=== PATIENT | male | born 1950 | race American Indian/Alaskan Native ===

== ENCOUNTER 2017-08-30 07:25 | Emergency (ER) | payer MEDICARE ==
[2017-08-30] MEDS ORDERED: MOTRIN PO ONE (10:13)
--- NOTE | 2017-08-30 10:13 | Emergency Department Report ---
ED Fall HPI - General Chief Complaint: Fall Stated Complaint: FALL Time Seen by Provider: 08/30/17 10:12 Source: patient Mode of arrival: Ambulatory Limitations: No Limitations - History of Present Illness Initial Comments: Patient reported that he slipped and fell yesterday while getting out of his truck. He said he is having in headache and soreness all over to include his upper back on both sides, upper neck on both sides and complaining of headache to the back of his head. Pain is 9 out of 10 comes and goes. Feels achy. No medication taken. Patient denies any alcohol use or intoxication. MD Complaint: fall, other (generalized ache to include bilateral upper back and headache.) Onset/Timin -: days(s) Fall From: other (siiting in truck and fell ot) When Fall Occurred: # days [employer] (1) Fall Witnessed: yes, by family Place Fall Occurred: street Loss of Consciousness: none Prolonged Down Time?: no Symptoms Prior to Fall: none Location: head, neck, back Severity: severe Severity scale (0 -10): 9 Quality: aching Context: tripped/slipped (Priyanka in shock and accidentally tripped and fell out of truck report that he hit his head,.) Associated Symptoms: headache, neck pain, other (upper back pain). denies: numbness, weakness, chest paint, shortness of breath, abdominal pain, hematuria , unable to walk, lightheaded, vertigo, confusion - Related Data Allergies Allergy/AdvReac Type Severity Reaction Status Date / Time No Known Allergies Allergy Unverified 08/30/17 07:29 ED Review of Systems ROS: Stated complaint: FALL Other details as noted in HPI Comment: All other systems reviewed and negative Constitutional: no symptoms reported Eyes: denies: eye pain, eye discharge Respiratory: no symptoms reported Cardiovascular: denies: chest pain, palpitations, dyspnea on exertion, edema, syncope, paroxysmal nocturnal dyspnea Gastrointestinal: denies: abdominal pain, nausea, vomiting, diarrhea, constipation Genitourinary: denies: dysuria, hematuria Musculoskeletal: back pain, arthralgia, myalgia. denies: joint swelling Skin: denies: rash Neurological: headache. denies: weakness, numbness, paresthesias, confusion, abnormal gait, vertigo ED Past Medical Hx - Past Medical History Previous Medical History?: Yes Hx Hypertension: Yes (no meds. states he is off all meds) - Surgical History Past Surgical History?: Yes Additional Surgical History: Brain surgery due to a blood clot - Family History Family history: hypertension - Social History Smoking Status: Never Smoker Substance Use Type: Alcohol, Non Opiate Pain ED Physical Exam - General Limitations: No Limitations General appearance: alert, in no apparent distress - Head Head exam: Present: atraumatic, normocephalic, normal inspection - Expanded Head Exam Expanded Head exam: Absent: laceration, abrasion, contusion, hematoma, racoon eyes, sherwood's sign, general tenderness, tenderness of temporal artery, CSF rhinorrhea , CSF otorrhea - Eye Eye exam: Present: normal appearance, PERRL, EOMI. Absent: nystagmus, periorbital swelling, periorbital tenderness Pupils: Present: normal accommodation - ENT ENT exam: Present: normal exam, normal orophraynx, mucous membranes moist - Neck Neck exam: Present: normal inspection, full ROM, other (no C-spine tenderness). Absent: tenderness, meningismus, lymphadenopathy, thyromegaly - Expanded Neck Exam Expanded Neck exam: Absent: tenderness, midline deformity, anterior neck swelling, thyroid mass, carotid bruit, tracheal deviation - Respiratory Respiratory exam: Present: normal lung sounds bilaterally. Absent: respiratory distress, chest wall tenderness, accessory muscle use - Cardiovascular Cardiovascular Exam: Present: regular rate, normal rhythm, normal heart sounds. Absent: systolic murmur, diastolic murmur - GI/Abdominal GI/Abdominal exam: Present: soft, normal bowel sounds. Absent: distended, tenderness, guarding, rebound, rigid, organomegaly, mass, bruit, pulsatile mass , hernia - Extremities Exam Extremities exam: Present: normal inspection, full ROM, normal capillary refill , other (no clubbing, cyanosis or edema. +2 pulses all extremities and no neurovascular compromise). Absent: tenderness, pedal edema, joint swelling, calf tenderness - Back Exam Back exam: Present: normal inspection, full ROM, other (ambulates without any difficulties). Absent: tenderness, CVA tenderness (R), CVA tenderness (L), muscle spasm, paraspinal tenderness, vertebral tenderness, rash noted - Neurological Exam Neurological exam: Present: alert, oriented X3, normal gait, reflexes normal. Absent: motor sensory deficit - Expanded Neurological Exam Expanded Neurological exam: Absent: innattentive, memory loss-remote event, memory loss- recent event, ataxia, receptive aphasia, expressive aphasia, total aphasia, tremor, protecting the airway Patient oriented to: Present: person, place, time Speech: Present: fluid speech Cranial nerves: EOM's Intact: Normal, Gag Reflex: Normal, Tongue Deviation: Normal, Nystagmus: Normal, Facial Sensation: Normal Cerebellar function: Romberg: Normal Upper motor neuron: Pronator Drift: Normal, Sensory Extinction: Normal Sensory exam: Upper Extremity Light Touch: Normal, Upper Extremity Pin Prick: Normal, Upper Extremity Temperature: Normal, UE 2 Point Discrimination: Normal, Lower Extremity Light Touch: Normal, Lower Extremity Pin Prick: Normal, Lower Extremity Temperature: Normal, LE 2 Point Discrimination: Normal Motor strength exam: RUE: 5, LUE: 5, RLE: 5, LLE: 5 DTR: bicep (R): 2+, bicep (L): 2+, tricep (R): 2+, tricep (L): 2+, knee (R): 2+ , knee (L): 2+, ankle (R): 2+, ankle (L): 2+ Best Eye Response (Ivonne): (4) open spontaneously Best Motor Response (Ivonne): (6) obeys commands Best Verbal Response (Ivonne): (5) oriented [place] Total: 15 - Psychiatric Psychiatric exam: Present: normal affect, normal mood - Skin Skin exam: Present: warm, dry, intact, normal color. Absent: rash ED Course Vital Signs 08/30/17 08/30/17 08/30/17 07:29 10:24 10:51 Temperature 97.6 F Pulse Rate 91 H Respiratory 20 18 18 Rate Blood Pressure 163/78 O2 Sat by Pulse 99 98 Oximetry 08/30/17 10:54 Temperature Pulse Rate 65 Respiratory Rate Blood Pressure 137/66 O2 Sat by Pulse 100 Oximetry - Reevaluation(s) Reevaluation #1: 08/30/17 12:21 Patient given Motrin for pain. Upon reading patient history a noted that he had brain surgery in the positive for blood clot. I went to discuss with patient that I think he'll need to have a CT scan based on his history and he was not in room. I call patient and he said he left because he was tired of waiting. I discussed with him that he needs a CT scan and anal need to return to the hospital. Patient agrees to come back. Reevaluation #2: 08/30/17 12:42 Patient is currently back in room. CT scan of the brain and head without contrast ordered. No change in neurological status from previous exam. Reevaluation #3: 08/30/17 13:[address] scan of the head and brain without contrast shows ventricles are normal in size and midline in location. No evidence of acute ischemic, hemorrhage or mass. Very small area of bright urine is identified at the right parietal region adjacent to the inner table. This here also revealed changes for craniotomy find in with possibility of early subdural, if present, cannot be excluded. Radiologist is recommended MRI to rule out subdural bleed due to recent trauma. Patient was informed and he agreed 08/30/17 13:56 Reevaluation #4: 08/30/17 14:42 Patient has been accepted by Dr. Darnell was trauma at [place]. He will be transferred via ambulance . EMS is currently here to transport patient. Lab work noted and in paperwork to transfer to [place]. CD in paperwork to transfer to [place]. Patient remained stable without change in neuro status. ED Medical Decision Making - Lab Data Result diagrams: 08/30/17 14:01 08/30/17 14:01 Lab Results 08/30/17 08/30/17 08/30/17 Range/Units 14:01 14:01 14:01 WBC 5.9 (4.5-11.0) K/mm3 RBC 4.56 (3.65-5.03) M/mm3 Hgb 9.7 L (11.8-15.2) gm/dl Hct 29.8 L (35.5-45.6) % MCV 65 L (84-94) fl MCH 21 L (28-32) pg MCHC 33 (32-34) % RDW 29.1 H (13.2-15.2) % Plt Count 212 (140-440) K/mm3 Baso % (Auto) Commercial Electrician PT 14.4 (12.2-14.9) Sec. INR 1.06 (0.87-1.13) APTT 32.9 (24.2-36.6) Sec. Sodium 136 L (137-145) mmol/L Potassium 4.0 (3.6-5.0) mmol/L Chloride 98.1 (98-107) mmol/L Carbon Dioxide 24 (22-30) mmol/L Anion Gap 18 mmol/L BUN 11 (9-20) mg/dL Creatinine 0.5 L (0.8-1.5) mg/dL Estimated GFR > 60 ml/min BUN/Creatinine Ratio 22 % Glucose 93 (75-100) mg/dL Calcium 8.8 (8.4-10.2) mg/dL Total Bilirubin 1.80 H (0.1-1.2) mg/dL Direct Bilirubin 0.4 H (0-0.2) mg/dL Indirect Bilirubin 1.4 mg/dL AST 24 (5-40) units/L ALT 10 (7-56) units/L Alkaline Phosphatase 52 (35-129) units/L Total Protein 7.4 (6.3-8.2) g/dL Albumin 4.2 (3.9-5) g/dL Albumin/Globulin Ratio 1.3 % - Radiology Data Radiology results: report reviewed CT scan of the head without contrast revealed ventricles are normal in size and midline in location. No evidence of acute ischemia, hemorrhage or mass. Very small area of bright dura is identified in the right parietal region adjacent to the inner table. This area also reveals bony changes from craniotomy. Patient had craniotomy in the past for blood clot. Radiologist also suggest that is a possibility of early subdural, if present, cannot be excluded. In view of history of recent trauma MRI scan is recommended for further evaluation. Patient does have headache and he said this headache is after he fall and hit his head. - Medical Decision Making ED course: Patient here report that he fell yesterday with headache to the back of his head and upper back pain and bilateral neck pain. Neurological status intact but the CT scan showed that he probably has early subdural bleed. CBC shows anemia and BMP shows patient with abnormal bilirubin. PT/INR and PTT is stable. Patient said he does not have any anemia. I discussed lab work, CT scan and recommendation to have MRI due to possibility of bleed versus old evacuation of clots via craniotomy per radiologist. Patient was accepted by [place] trauma team Dr. Darnell. I spoke with attending physician in emergency room and he wanted patient to be transfer. This was explained to patient in detail and he agrees. Patient neurological status intact and remained intact during ED stay. Pt had left for while to go home without telling anyone and had to call him on his personal cell phone to come back because I told him that he needed a CT scan of his head. Denies that he left because he wanted to go home and sleep. Patient transfer to [facility] via EMS in stable condition. Critical care attestation.: If time is entered above; I have spent that time in minutes in the direct care of this critically ill patient, excluding procedure time. ED Disposition Clinical Impression: Abnormal CT of brain, Acute upper back pain Headache, post-traumatic, acute Qualifiers: Intractability: not intractable Qualified Code(s): G44.319 - Acute post- traumatic headache, not intractable Neck muscle strain Qualifiers: Encounter type: initial encounter Qualified Code(s): S16.1XXA - Strain of muscle, fascia and tendon at neck level, initial encounter Closed head injury without concussion Qualifiers: Encounter type: initial encounter Qualified Code(s): S09.90XA - Unspecified injury of head, initial encounter Disposition: DC/TX-70 ANOTHER TYPE HLTHCARE Is pt being admited?: No Does the pt Need Aspirin: No Condition: Stable Referrals: PRIMARY CARE, [Primary Care Provider] - 3-5 Days
[2017-08-30 11:01] VITALS: BP 137/66
--- NOTE | 2017-08-30 13:12 | Cat Scan Report ---
CT scan of head without IV contrast: History: Status post fall. History of brain surgery and blocked. Findings: Ventricles are normal in size and midline in location. No evidence of acute ischemic, hemorrhage or mass. Very small area of bright dura is identified at the right parietal region adjacent to the inner table. This area also reveals bony changes from craniotomy. Normal brainstem and cerebellum. Impression: Findings as detailed above is probably related to previous surgery however possibility of early subdural, if present, cannot be excluded. In view of history of recent trauma MRI scan is a recommended for further evaluation.
[2017-08-30 14:27] LABS: Hematocrit 29.8 % (35.5-45.6); Hemoglobin 9.7 gm/dl (11.8-15.2); Mean Corpuscular HGB Conc 33 % (32-34); Mean Corpuscular Hemoglobin 21 pg (28-32); Mean Corpuscular Volume 65 fl (84-94); Platelet Count 212 K/mm3 (140-440); Red Blood Count 4.56 M/mm3 (3.65-5.03); Red Cell Distribution Width 29.1 % (13.2-15.2)
[2017-08-30 14:35] LABS: INR 1.06 (0.87-1.13); Partial Thromboplastin Time 32.9 Sec. (24.2-36.6)
[2017-08-30 14:39] LABS: Alanine Aminotransferase 10 units/L (7-56); Albumin 4.2 g/dL (3.9-5); BUN/Creatinine Ratio 22; Bilirubin,Direct 0.4 mg/dL (0-0.2); Blood Urea Nitrogen 11 mg/dL (9-20); Calcium 8.8 mg/dL (8.4-10.2); Hemolysis Index 6
[2017-08-30 14:53] LABS: Anisocytosis 2+; Eosinophils % (Manual) 0 % (0.0-4.3); Helmet Cells 1+; Hypochromasia 2+; Ovalocytes 1+; Poikilocytosis 3+; Target Cells 1+; Tear Drop Cells 1+; Total Cells Counted 100
[2017-08-30 14:54] LABS: Acanthocytes 1+; Giant Platelets Rare; Schistocytes Few
== END 2017-08-30 14:50 | disposition other institution (70) ==
LOC: ED 07:25
DX: S16.1XXA Strain of muscle, fascia and tendon at neck level, initial encounter (principal); G44.319 Acute post-traumatic headache, not intractable; S09.90XA Unspecified injury of head, initial encounter; M54.9 Dorsalgia, unspecified; R90.89 Other abnormal findings on diagnostic imaging of central nervous system; I10 Essential (primary) hypertension; V98.8XXA Other specified transport accidents, initial encounter; Y93.89 Activity, other specified; Y99.8 Other external cause status; Y92.410 Unspecified street and highway as the place of occurrence of the external cause
CPT/HCPCS: 36415; 70450; 80048; 80074; 85007; 85025; 85610; 85730

== ENCOUNTER 2018-09-16 20:09 | Emergency (ER) | payer MEDICARE ==
[2018-09-16 20:17] VITALS: BP 156/95
--- NOTE | 2018-09-16 20:24 | Emergency Department Report ---
Blank Doc - Documentation Documentation: This is a 67-year-old male that presents with epigastric abdominal pain. Denies any n/v. This initial assessment/diagnostic orders/clinical plan/treatment(s) is/are subject to change based on patient's health status, clinical progression and re- assessment by fellow clinical providers in the ED. Further treatment and workup at subsequent clinical providers discretion. Patient/guardians urged not to elope from the ED as their condition may be serious if not clinically assessed and managed. Initial orders include: 1- Patient sent to [facility] for further evaluation and treatment 2- labs 3- UA
[2018-09-16 21:16] LABS: Hematocrit 30.7 % (35.5-45.6); Hemoglobin 10.2 gm/dl (11.8-15.2); Mean Corpuscular HGB Conc 33 % (32-34); Mean Corpuscular Volume 68 fl (84-94); Platelet Count 319 K/mm3 (140-440); Red Blood Count 4.54 M/mm3 (3.65-5.03); Red Cell Distribution Width 29.2 % (13.2-15.2)
[2018-09-16 21:19] LABS: Alanine Aminotransferase 8 units/L (7-56); Albumin 4.3 g/dL (3.9-5); BUN/Creatinine Ratio 13; Bilirubin,Direct 0.3 mg/dL (0-0.2); Blood Urea Nitrogen 9 mg/dL (9-20); Calcium 9.3 mg/dL (8.4-10.2); Hemolysis Index 5
[2018-09-16 21:49] LABS: Basophils % (Manual) 0 % (0.0-1.8); RBC Morphology Normal; Total Cells Counted 100
--- NOTE | 2018-09-16 21:55 | XRay Report ---
PROCEDURE: XR ABD SERIES W CXR 1V TECHNIQUE: Abdominal series complete, including supine and upright AP views of the abdomen and front al chest. HISTORY: abd pain COMPARISONS: None . FINDINGS: Heart: Normal. Mediastinum/Vessels: Normal. Lungs/Pleural space: Normal. Bowel gas pattern: Nonobstructive . Masses or calcifications: None . Bony structures: No acute osseous abnormality . Other: No free intraperitoneal air . IMPRESSION: No acute abnormality. This document is electronically signed by Raffy Britt MD., September 16 2018 09:52:59 PM ET
[2018-09-17] MEDS ORDERED: ALUM-MAG HYDROX-SIMETH 200-200-20MG/5ML PO ONE (00:37)
[2018-09-17] MEDS ORDERED: LIDOCAINE VISCOUS 2% PO ONE (00:37)
--- NOTE | 2018-09-17 00:45 | Emergency Department Report ---
ED Abdominal Pain HPI - General Chief Complaint: Abdominal Pain Stated Complaint: ABD PAIN Time Seen by Provider: 09/16/18 20:23 Source: patient Mode of arrival: Ambulatory Limitations: No Limitations - History of Present Illness Initial Comments: Patient is a 59-year-old -Swedish male history of hypertension history of recurrent constipation presents for left flank and epigastric pain pressure . He states that he decreased bowel movements states bowel movements have decreased from once a day to every other day now small amounts firm there's no bleeding no bloody stools there is no chest pain or shortness of breath no back pain no dizziness or lightheadedness MD Complaint: abdominal pain Onset/Timin -: week(s) Location: epigastric Radiation: LLQ Migration to: LLQ Severity scale (0 -10): 8 Quality: cramping Consistency: intermittent Improves With: other (belching bowel movement ) Worsens With: movement Associated Symptoms: constipation - Related Data Home Medications Medication Instructions Recorded Confirmed Last Taken Apixaban [Eliquis] 5 mg PO DAILY 03/05/18 03/05/18 03/04/18 05:30 Metoprolol [Lopressor TAB] 25 mg PO DAILY 03/05/18 03/05/18 03/04/18 hydroCHLOROthiazide [HCTZ] 25 mg PO QDAY 03/05/18 03/05/18 03/04/18 Previous Rx's Medication Instructions Recorded Last Taken Type Bisacodyl [Dulcolax suppos] 10 mg MS QDAY PRN #6 supp.rect 09/17/18 Unknown Rx Polyethylene Glycol 3350 [Miralax 17 gm PO BID PRN 7 Days #14 packet 09/17/18 Un known Rx 3350] Allergies Allergy/AdvReac Type Severity Reaction Status Date / Time No Known Allergies Allergy Unverified 08/30/17 07:29 ED Review of Systems ROS: Stated complaint: ABD PAIN Other details as noted in HPI Constitutional: denies: chills, fever Eyes: denies: eye pain, eye discharge, vision change ENT: denies: ear pain, throat pain Respiratory: denies: cough, shortness of breath, wheezing Cardiovascular: denies: chest pain, palpitations Endocrine: no symptoms reported Gastrointestinal: abdominal pain, constipation. denies: nausea, diarrhea Genitourinary: denies: urgency, dysuria Musculoskeletal: denies: back pain, joint swelling, arthralgia Skin: denies: rash, lesions Neurological: denies: headache, weakness, paresthesias Psychiatric: denies: anxiety, depression Hematological/Lymphatic: denies: easy bleeding, easy bruising ED Past Medical Hx - Past Medical History Previous Medical History?: Yes Hx Hypertension: Yes Hx Asthma: No Hx HIV: No - Surgical History Past Surgical History?: Yes Additional Surgical History: Brain surgery due to a blood clot - Social History Smoking Status: Never Smoker Substance Use Type: None - Medications Home Medications: Home Medications Medication Instructions Recorded Confirmed Last Taken Type Apixaban [Eliquis] 5 mg PO DAILY 03/05/18 03/05/18 03/04/18 05:30 History Metoprolol [Lopressor TAB] 25 mg PO DAILY 03/05/18 03/05/18 03/04/18 History hydroCHLOROthiazide [HCTZ] 25 mg PO QDAY 03/05/18 03/05/18 03/04/18 History Bisacodyl [Dulcolax suppos] 10 mg MS QDAY PRN #6 supp.rect 09/17/18 Unknown Rx Polyethylene Glycol 3350 [Miralax 17 gm PO BID PRN 7 Days #14 packet 09/17/18 Unknown Rx 3350] ED Physical Exam - General Limitations: No Limitations General appearance: alert, in no apparent distress - Head Head exam: Present: atraumatic, normocephalic - Eye Eye exam: Present: normal appearance - ENT ENT exam: Present: mucous membranes moist - Neck Neck exam: Present: normal inspection - Respiratory Respiratory exam: Present: normal lung sounds bilaterally. Absent: respiratory distress, wheezes, stridor, chest wall tenderness - Cardiovascular Cardiovascular Exam: Present: regular rate, normal rhythm, normal heart sounds. Absent: systolic murmur, diastolic murmur, rubs, gallop - GI/Abdominal GI/Abdominal exam: Present: soft, normal bowel sounds - Rectal Rectal exam: Present: deferred - Extremities Exam Extremities exam: Present: normal inspection - Back Exam Back exam: Present: normal inspection, full ROM. Absent: tenderness, CVA tenderness (R), CVA tenderness (L), muscle spasm, rash noted - Neurological Exam Neurological exam: Present: alert, oriented X3 - Psychiatric Psychiatric exam: Present: normal affect, normal mood - Skin Skin exam: Present: warm, dry, intact, normal color. Absent: rash ED Course Vital Signs 09/16/18 09/16/18 20:14 20:23 Temperature 97.5 F L 97.5 F L Pulse Rate 78 78 Respiratory 16 16 Rate Blood Pressure 156/95 156/95 O2 Sat by Pulse 100 100 Oximetry ED Medical Decision Making - Lab Data Result diagrams: 09/16/18 20:30 09/16/18 20:30 Lab Results 09/16/18 09/16/18 Range/Units 20:30 20:30 WBC 5.3 (4.5-11.0) K/mm3 RBC 4.54 (3.65-5.03) M/mm3 Hgb 10.2 L (11.8-15.2) gm/dl Hct 30.7 L (35.5-45.6) % MCV 68 L (84-94) fl MCH 23 L (28-32) pg MCHC 33 (32-34) % RDW 29.2 H (13.2-15.2) % Plt Count 319 (140-440) K/mm3 Lymph % (Auto) Sales Review Clerk Add Manual Diff Complete Total Counted 100 Seg Neutrophils % Sales Review Clerk Seg Neuts % (Manual) 42.0 (40.0-70.0) % Band Neutrophils % 0 % Lymphocytes % (Manual) 51.0 H (13.4-35.0) % Reactive Lymphs % (Man) 0 % Monocytes % (Manual) 4.0 (0.0-7.3) % Eosinophils % (Manual) 3.0 (0.0-4.3) % Basophils % (Manual) 0 (0.0-1.8) % Metamyelocytes % 0 % Myelocytes % 0 % Promyelocytes % 0 % Blast Cells % 0 % Nucleated RBC % Not Reportable Seg Neutrophils # Man 2.2 (1.8-7.7) K/mm3 Band Neutrophils # 0.0 K/mm3 Lymphocytes # (Manual) 2.7 (1.2-5.4) K/mm3 Abs React Lymphs (Man) 0.0 K/mm3 Monocytes # (Manual) 0.2 (0.0-0.8) K/mm3 Eosinophils # (Manual) 0.2 (0.0-0.4) K/mm3 Basophils # (Manual) 0.0 (0.0-0.1) K/mm3 Metamyelocytes # 0.0 K/mm3 Myelocytes # 0.0 K/mm3 Promyelocytes # 0.0 K/mm3 Blast Cells # 0.0 K/mm3 WBC Morphology Not Reportable Hypersegmented Neuts Not Reportable Hyposegmented Neuts Not Reportable Hypogranular Neuts Not Reportable Smudge Cells Not Reportable Toxic Granulation Not Reportable Toxic Vacuolation Not Reportable Dohle Bodies Not Reportable Pelger-Huet Anomaly Not Reportable Keyla Rods Not Reportable Platelet Estimate Not Reportable Clumped Platelets Not Reportable Plt Clumps, EDTA Not Reportable Large Platelets Not Reportable Giant Platelets Not Reportable Platelet Satelliting Not Reportable Plt Morphology Comment Not Reportable RBC Morphology Normal Dimorphic RBCs Not Reportable Polychromasia Not Reportable Hypochromasia Not Reportable Poikilocytosis Not Reportable Anisocytosis Not Reportable Microcytosis Not Reportable Macrocytosis Not Reportable Spherocytes Not Reportable Pappenheimer Bodies Not Reportable Sickle Cells Not Reportable Target Cells Not Reportable Tear Drop Cells Not Reportable Ovalocytes Not Reportable Helmet Cells Not Reportable Polo-Sacred Heart Bodies Not Reportable [place] Rings Not Reportable [place] Cells Not Reportable Bite Cells Not Reportable Crenated Cell Not Reportable Elliptocytes Not Reportable Acanthocytes (Spur) Not Reportable Rouleaux Not Reportable Hemoglobin C Crystals Not Reportable Schistocytes Not Reportable Malaria parasites Not Reportable Boaz Bodies Not Reportable Hem Pathologist Commnt No Sodium 139 (137-145) mmol/L Potassium 4.4 (3.6-5.0) mmol/L Chloride 100.8 (98-107) mmol/L Carbon Dioxide 28 (22-30) mmol/L Anion Gap 15 mmol/L BUN 9 (9-20) mg/dL Creatinine 0.7 L (0.8-1.5) mg/dL Estimated GFR > 60 ml/min BUN/Creatinine Ratio 13 % Glucose 101 H (75-100) mg/dL Calcium 9.3 (8.4-10.2) mg/dL Total Bilirubin 1.80 H (0.1-1.2) mg/dL Direct Bilirubin 0.3 H (0-0.2) mg/dL Indirect Bilirubin 1.5 mg/dL AST 18 (5-40) units/L ALT 8 (7-56) units/L Alkaline Phosphatase 50 (35-129) units/L Total Protein 7.5 (6.3-8.2) g/dL Albumin 4.3 (3.9-5) g/dL Albumin/Globulin Ratio 1.3 % Lipase 39 (13-60) units/L - Radiology Data Radiology results: report reviewed, image reviewed Ordering Physician: SLADE GIRON NP Date of Service: 09/16/18 Procedure(s): XR abd series w cxr 1V Accession Number(s): [id number] cc: SLADE GIRON NP Fluoro Time In Minutes: PROCEDURE: XR ABD SERIES W CXR 1V TECHNIQUE: Abdominal series complete, including supine and upright AP views of the abdomen and frontal chest. HISTORY: abd pain COMPARISONS: None . FINDINGS: Heart: Normal. Mediastinum/Vessels: Normal. Lungs/Pleural space: Normal. Bowel gas pattern: Nonobstructive . Masses or calcifications: None . Bony structures: No acute osseous abnormality . Other: No free intraperitoneal air . IMPRESSION: No acute abnormality. This document is electronically signed by Raffy Krishna MD., September 16 2018 09:52:59 PM ET Transcribed By: CO Dictated By: RAFFY KRISHNA MD Electronically Authenticated By: RAFFY KRISHNA MD Signed Date/Time: 09/16/182154 DD/ 53 TD/TT: 09/16/182053 - Medical Decision Making This is likely mild constipation patient is tolerating by mouth intake is having bowel movements however small amounts scant hard firm pellets chest x-rays. No infiltration opacities abdominal x-ray nonobstructive bowel pattern moderate stool throughout colon there is no chest pain or shortness of breath no nausea vomiting no dizziness patient has PCP follow-up in 2 days patient will keep PCP follow-up patient given GI cocktail in the ED which relieved symptoms plan: MiraLAX twice a day when necessary constipation, follow up PCP on Thursday 2 days from now as scheduled and return to emergency department should symptoms worsen patient verbalized agreement and understanding of discharge plan patient DC'd to home in stable condition at this time Critical care attestation.: If time is entered above; I have spent that time in minutes in the direct care of this critically ill patient, excluding procedure time. ED Disposition Clinical Impression: Abdominal pain Qualifiers: Abdominal location: left upper quadrant Qualified Code(s): R10.12 - Left upper quadrant pain Disposition: TO HOME OR SELFCARE Is pt being admited?: No Does the pt Need Aspirin: No Condition: Stable Instructions: Constipation in Children (ED), High Fiber Diet (ED) Prescriptions: Bisacodyl [Dulcolax suppos] 10 mg MS QDAY PRN #6 supp.rect PRN Reason: Constipation Polyethylene Glycol 3350 [Miralax 3350] 17 gm PO BID PRN 7 Days #14 packet PRN Reason: Constipation Referrals: LIV BLANCO MD [Staff Physician] - 3-5 Days Forms: Work/School Release Form(ED) Time of Disposition: :01
== END 2018-09-17 01:10 | disposition home or self-care (01) ==
LOC: ED 20:09
DX: R10.12 Left upper quadrant pain (principal)
CPT/HCPCS: 36415; 74022; 80048; 80076; 83690; 85007; 85025